=== PATIENT | female | born 1935 | race Caucasian/White ===

== ENCOUNTER → 2018-10-14 | Outpatient (CLI) | payer MEDICARE, OTHER ==
--- NOTE | 2018-10-14 17:00 | ECHOF ---
Referral Reason:R42 Dizziness MEASUREMENTS -------- HEIGHT: 160.0 cm WEIGHT: 58.1 kg BP: RVIDd: 2.5 cm (< 3.3) IVSd: 1.4 cm (0.6 - 1.1) LVIDd: 3.8 cm (3.9 - 5.3) LVPWd: 1.6 cm (0.6 - 1.1) IVSs: 1.6 cm LVIDs: 2.3 cm LVPWs: 2.1 cm LAESV Index (A-L): 30.05 ml/m Ao Diam: 2.6 cm (2.0 - 3.7) AV Cusp: 1.8 cm (1.5 - 2.6) LA Diam: 3.5 cm (2.7 - 3.8) EPSS: 1.0 cm MV E Jose Luis: 0.69 m/s MV DecT: 192 ms MV A Jose Luis: 0.90 m/s MV E/A Ratio: 0.76 AR PHT: 486 ms RAP: 5.00 mmHg RVSP: 35.23 mmHg MV EF SLOPE: 109.41 mm/s (70 - 150) MV EXCURSION: 1.79 cm (> 18.000) FINDINGS -------- Sinus rhythm. This was a technically good study. The left ventricular size is normal. There is moderate concentric left ventricular hypertrophy. O verall left ventricular systolic function is normal with, an EF between 55 - 60 %. The diastolic fi lling pattern is normal for the age of the patient. The right ventricle is normal in size. Left atrium is mildly dilated by volume. The right atrial size is normal. Interatrial and interventricular septum intact. The aortic valve is trileaflet and appears structurally normal. There is mild aortic valve sclerosi s without stenosis. There is [id number] aortic regurgitation. Edgk-fq-cynzjebp mitral regurgitation is present. Mild tricuspid regurgitation present. There is mild pulmonary hypertension. The right ventricular systolic pressure, as measured by Doppler, is 35.23mmHg. There is no pulmonic regurgitation present. The aortic root size is normal. IVC not well visualized There is no pericardial effusion. CONCLUSIONS -------- 1. Sinus rhythm. 2. This was a technically good study. 3. The left ventricular size is normal. 4. There is moderate concentric left ventricular hypertrophy. 5. Overall left ventricular systolic function is normal with, an EF between 55 - 60 %. 6. The diastolic filling pattern is normal for the age of the patient. 7. The right ventricle is normal in size. 8. Left atrium is mildly dilated by volume. 9. The right atrial size is normal. 10. Interatrial and interventricular septum intact. 11. The aortic valve is trileaflet and appears structurally normal. 12. There is mild aortic valve sclerosis without stenosis. 13. There is avfn-si-ftesjemn aortic regurgitation. 14. Kmie-pv-mlhqevys mitral regurgitation is present. 15. Mild tricuspid regurgitation present. 16. There is mild pulmonary hypertension. 17. The right ventricular systolic pressure, as measured by Doppler, is 35.23mmHg. 18. There is no pulmonic regurgitation present. 19. The aortic root size is normal. 20. IVC not well visualized 21. There is no pericardial effusion. [employer]OTATION OPERATOR: Moriah Liang RDCS
== END | disposition home or self-care (01) ==
LOC: RADECHMAIN 14:56
PROVIDERS: ATTEND Family Medicine
DX: I08.3 Combined rheumatic disorders of mitral, aortic and tricuspid valves (principal); I27.20 Pulmonary hypertension, unspecified
CPT/HCPCS: 93306